=== PATIENT | female | born 2000 | race Caucasian/White ===

== ENCOUNTER 2024-11-14 13:23 | Emergency (ER) | payer BC, SELFPAY ==
[2024-11-14 13:25] VITALS: BP 128/73; PULSE 84; RESP 18; TEMP 36.6; O2SAT 100
[2024-11-14 13:34] VITALS: BP 133/69; PULSE 83; RESP 17; O2SAT 100
--- NOTE | 2024-11-14 14:11 | ED.GENADULT ---
HPI - General Adult General Chief complaint: Environmental Exposure Stated complaint: Carbon Monoxide Exposure Time Seen by Provider: 11/14/24 13:34 History of Present Illness HPI narrative: 24-year-old female presents to the emergency department for evaluation for carbon monoxide exposure. Patient states that her car a/c has been running poorly. patient began having nausea vomiting headache and some confusion earlier patient presented to the emergency department and was found to have a common oxide level of 13. States she is beginning to feel improved. Patient was placed on a non-rebreather shortly after arrival to the emergency department. Related Data Allergies Allergy/AdvReac Type Severity Reaction Status Date / Time No Known Allergies Allergy Verified 11/14/24 13:36 Review of Systems Review of Systems: All systems reviewed & are unremarkable except as noted in HPI and below Exam Narrative: APPEARANCE: Well appearing, no pain, no distress, well-nourished. HEAD: normocephalic, atraumatic. EYES: PERRLA/EOMI, conjunctivae clear. NOSE: Normal no drainage EARS:TMS clear with good light reflex. THROAT: Pharynx clear, no exudate. NECK: Supple. No adenopathy, no masses. RESPIRATORY: Airway patent, respirations nonlabored. Clear to auscultation bilaterally, no rales, rhonchi, wheezing. CARDIOVASCULAR: Regular rate and rhythm without murmurs rubs or gallops. ABDOMINAL: Soft, nontender, nondistended, normal bowel sounds MUSCULOSKELETAL: Moves all extremities. Strength/ROM intact, No edema, No calf tenderness. NEURO: Alert. Cranial nerves II through XII intact. Grossly intact SKIN: Warm, dry. Normal Color Course Vital Signs Vital signs: Vital Signs Temperature 97.8 F 11/14/24 13:25 Pulse Rate 84 11/14/24 13:25 Respiratory Rate 18 11/14/24 13:25 Blood Pressure 128/73 11/14/24 13:25 Pulse Oximetry 100 11/14/24 13:25 Oxygen Delivery Room Air 11/14/24 13:25 Temperature 97.8 F 11/14/24 13:25 Pulse Rate 71 11/14/24 15:59 Respiratory Rate 20 11/14/24 15:59 Blood Pressure 98/67 L 11/14/24 15:59 Pulse Oximetry 98 11/14/24 15:59 Oxygen Delivery Room Air 11/14/24 13:34 Medical Decision Making MDM Narrative Medical decision making narrative: 24-year-old female presents to the emergency department for evaluation for carbon monoxide exposure. Patient's initial carbon monoxide was approximately 13 on the portable monitor patient was kept on a non-rebreather 15 L for proximal 1 hour and symptoms did improve. ABG showed a carboxyhemoglobin of 0.3. Differential Diagnosis Differential Diagnosis: Carbon monoxide exposure, pneumonia Vital Signs Vital Signs: Vital Signs Temperature 97.8 F 11/14/24 13:25 Pulse Rate 84 11/14/24 13:25 Respiratory Rate 18 11/14/24 13:25 Blood Pressure 128/73 11/14/24 13:25 Pulse Oximetry 100 11/14/24 13:25 Oxygen Delivery Room Air 11/14/24 13:25 Temperature 97.8 F 11/14/24 13:25 Pulse Rate 71 11/14/24 15:59 Respiratory Rate 20 11/14/24 15:59 Blood Pressure 98/67 L 11/14/24 15:59 Pulse Oximetry 98 11/14/24 15:59 Oxygen Delivery Room Air 11/14/24 13:34 Lab Data Labs: Lab Results 11/14/24 Range/Units 15:13 Methemoglobin 0.9 (0-1.5) %THb ABG Data ABG results: 11/14/24 15:13 Puncture Site Right radial ABG pH 7.440 ABG pCO2 34.2 L ABG pO2 94.2 ABG PO2/FiO2 Ratio 4.49 ABG HCO3 22.7 ABG O2 Saturation 97.5 ABG O2 Content 16.3 ABG Base Excess -0.9 A-a Gradient 14.6 Oxyhemoglobin 96.2 Carboxyhemoglobin 0.3 Reduced Hemoglobin 2.6 Total Hemoglobin 12.0 O2 Delivery Device Room air O2 Liters/Min Not Reportable FiO2 21 Discharge Plan Discharge Clinical Impression: Carbon monoxide exposure Patient Disposition: Home Condition: Stable Instructions: Antibiotic Form, Carbon Monoxide Poisoning (ED) Additional Instructions: Have close follow-up with your primary care physician. Patient Language: Tanzanian Follow-up/Referrals: PHYSICIAN NOT ON STAFF,NONSTAFF [Primary Care Provider] -
--- OUTSIDE RECORDS SUMMARY | 2024-11-14 14:22 | XMS_ITS | Referral Summary ---
Author Organization [facility] [address] Address [address] [place] [address] Phone Care Team Providers Care Thread Clipper Name Role Phone Carlota Espino MD Primary Care Provider [phone] Allergies No known active allergies Medications iron bisgly,ps-FA-B-C# 12-succ 65 mg-65 mg -1,000 mcg (24) tablet Take by mouth senior analytic consultant before breakfast Active mv-min/iron/folic /calcium/vitK (WOMEN'S MULTIVITAMIN ORAL) Take by mouth senior analytic consultant before breakfast Active ciclopirox 1 % shampoo 2 Active drospirenone-ethi nyl estradioL (HOLLY,OCELLA) 3-0.03 mg per tablet Take 1 tablet by mouth daily 28 tablet 12 4 Active naproxen (NAPROSYN) 500 mg tablet Take 1 tablet (500 mg total) by mouth 2 (two) times a day with meals 30 tablet 5 Active HYDROcodone-aceta minophen (NORCO) 5-325 mg per tabletIndications :Pain Take 1 tablet by mouth every 6 (six) hours as needed for pain for up to 10 doses 10 tablet 5 Active Active Problems Problem Noted Date Diagnosed Date Abdominal pain 07/19/2021 Assessment & Plan (07/19/2021 9:59 AM INTERNAL MEDICINE SPECIALIST): Chronic and intermittent. Differential diagnosis: Dyspepsia versus gallbladder dysfunction verses food allergy Will obtain screening labs:LFTs, lipase, amylase Right upper quadrant ultrasound to look at gallbladder Continue to monitor symptoms, log any recurrences to help identify triggers Will follow up on labs/imaging and discuss additional plan as needed. Patient courage to follow-up with clinic or go to ER if symptoms recur Annual physical exam 07/19/2021 Assessment & Plan (12/18/2022 2:47 PM CDT): Doing well. BMI:20.12 Normal Routine labs ordered - Lipid Preventative Screening Due:GC/Chlamydia, Pap (scheduled with Fundraising Director) Dietary and exercise recommendations given today. Recommend exercise at least 30 minutes moderate to vigorous exercise and some strength training most days of the week. (minimum 150 minutes weekly) Discussed MyPlate recommendations and increasing fruits and vegetables Age appropriate counseling provided - Safe sex practices, Seat belt use, alcohol/drug avoidance Vaccines due - TDAP RTC annually for f/u Assessment & Plan (07/19/2021 10:00 AM INTERNAL MEDICINE SPECIALIST): Doing well. BMI 21 Routine labs ordered - CBC Preventative Screening Due: None. Denies any sexual activity in past so HIV, GC/Chlaymdia not performed. Dietary and exercise recommendations given today Vaccines due - none. Per patient flu vaccine given 03/2021 RTC annually for f/u Iron deficiency anemia 07/19/2021 Assessment & Plan (07/19/2021 9:44 AM INTERNAL MEDICINE SPECIALIST): Chronic and stable. Continue current medication. Will obtain lab and adjust meds prn Dysthymic disorder 07/19/2021 Assessment & Plan (07/19/2021 9:50 AM INTERNAL MEDICINE SPECIALIST): Chronic. PHQ-9 score 9 = mild depression IZA-7 score 2 No SI/HI Will continue to monitor. Patient advised to follow-up in clinic if symptoms worsen Dysfunction of both eustachian tubes 12/20/2019 Assessment & Plan (12/20/2019 4:33 PM CDT): Avoid ear cleaning techniques Avoid water to ears Flonase 2 sprays into each nostril while looking down over the sink, do not sniff in or blow nose after use for at least 30 minutes Sprain of calcaneofibular ligament of right ankl e 01/13/2018 Major depressive disorder, s bethany episode, mild with anxious distress 06/09/2017 GE reflux 02/27/2017 Immunizations Immunization Administration Dates Next Due DTaP 11/25/2006, 2,2001,06/09,2001 HPV, Quadrivalent 01/03/2013,09/13/2012,07/05/19 13 Hep A, Pediatric 09/16/2010 Hep B, Adolescent or Pediatric 2001,2000,2001 Hib (PRP-T) 05/09/2002, 2,2001,04/08 IPV 11/25/2006, 2,2001,04/08 Influenza, Quadrivalent, Spl it, Intramuscular 02/24/2018 Influenza, Quadrivalent, Spl it, Preservative Free, Intramuscular 02/22/2019,05/20/2017 Influenza, Trivalent, IM (MDV) 03/22/2015 Influenza, Trivalent, Preser vative Free, Intramuscular 02/15/2016 Influenza, Unspecified 02/16/2020 MMR 11/25/2006,02/10/2002 Meningococcal Conjugate (Menveo) 02/25/2019 Meningococcal MCV4P (Menactra) 07/05/2012,2010 Pneumococcal Conjugate 7-Valent 05/09/20 02,2001,2001,04/08 Tdap 07/05/2012 Varicella 11/25/2006,02/10/2002 Social History Tobacco Use Types Packs/Day Years Used Date Smoking Tobacco: Never Cigarettes Smokeless Tobacco: Never Alcohol Use Standard Drinks/Week Comments Not Currently 0 (1 standard drink = 0.6 oz pur e alcohol) AUDIT-C Answer Date Recorded Q1: How often do you have a drink containing alc ohol? Never 12/18/2022 Average Number of Drinks Not on file 023 Frequency of Binge Drinking Not on file 11/30 PHQ-2 Answer Date Recorded PHQ-2 Total Score (If total score is 3 or more points, staff should administer the PHQ-9) 0 12/18/2022 Personal Safety Answer Date Recorded Have you ever been in or are you currently in a harmful physical or emotional relationship or is someone making you feel afraid or unsafe? Denies 07/04/2024 Comments No Sex and Gender Information Value Date Recorded Sex Assigned at Not on file Legal Sex Female 1:47 AM INTERNAL MEDICINE SPECIALIST Gender Identity Not on file Sexual Orientation Not on file Last Filed Vital Signs Vital Sign Reading Time Taken Comments Blood Pressure 107/63 07/04/2024 6:58 PM INTERNAL MEDICINE SPECIALIST Pulse 88 07/04/2024 6:58 PM INTERNAL MEDICINE SPECIALIST Temperature 36.9 C (98.5 F) 07/04/2024 6:58 PM INTERNAL MEDICINE SPECIALIST Respiratory Rate 18 07/04/2024 6:58 PM INTERNAL MEDICINE SPECIALIST Oxygen Saturation 99% 07/04/2024 6:58 PM INTERNAL MEDICINE SPECIALIST Inhaled Oxygen Concentration - - Weight 52.2 kg (115 lb) 07/04/2024 6:58 PM INTERNAL MEDICINE SPECIALIST Height 157.5 cm (5' 2) 07/04/2024 6:58 PM INTERNAL MEDICINE SPECIALIST Body Mass Index 21.03 07/04/2024 6:58 PM INTERNAL MEDICINE SPECIALIST Plan of Treatment Not on file Procedures Procedure Name Priority Date/Time Associated Diagnosis Comments PAP WITH REFLEX TO HIGH RISK HPV Routine 12/30/2022 10:59 AM CDT Screening for malignant neoplasm of the cervix from Last 3 Months or Most Recently Relevant to Health Maintenance Results * Pap with reflex to High Risk HPV and Genotyping (Cytology Component) (12/30/2022 10:59 AM CDT) Thin prep (Pap test) 12/30/2022 10:59 AM CDT 12/30/2022 10:59 AM CDT Narrative PATHOLOGY CH - 01/05/2023 3:39 PM CDT [facility] Department of Pathology [address] [place], [place] [id number] Final Report Note to Patients: This report may contain a detailed description of human tissue sent by a health care provider to the laboratory for pathologic evaluation. The content of this report is essential for diagnosis and may provide important critical findings. This information may be unfamiliar to patients to review without a medical professional present. It is advised that the patient review this report in the presence of a health care provider who can answer questions and explain the details. Patient Name: NAHED ROBERTS Address: [address] [place] [address] Gender: F : 2000 (Age: 22) Service: Location: [facility] #: [id number] Patient Type: SPECIMEN Taken: 12/30/2022 Received: 12/30/2022 Accessioned:: 12/31/2022 Reported: 01/05/2023 Physician(s): Patti Hammer D.O. Diagnosis: SOURCE OF SPECIMEN Imaged Thinprep Pap Test w/ Reflex HPV - Fundraising Director Cytologic Material: STATEMENT OF ADEQUACY - Satisfactory for evaluation; endocervical/transformation zone component present GENERAL CATEGORIZATION: - Negative for intraepithelial lesion or malignancy INTERPRETATION: - Reactive/reparative cell changes CHARLOTTE Mejia(ASCP)Miesha Salvador M.D. Report Electronically Reviewed and Signed Out By Miesha Salvador M.D. 01/05/2023 15:39:50Specimen(s) Received: A: Imaged Thinprep Pap Test w/ Reflex HPV - Fundraising Director Cytologic Material Clinical History: Last Menstrual Period: 12/23/2022 The Pap test is a screening test used to aid in the detection of cervical cancer and its precursors. It should not be the sole means by which malignant and premalignant lesions are diagnosed. Both false negative and false positive results may occur. It also has poor sensitivity for the detection of endometrial lesions and should not be used to evaluate suspected endometrial abnormalities. For these reasons it is most important to obtain Pap tests at regular intervals. The performance characteristics of some immunohistochemical stains, fluorescence in-situ hybridization tests and immunophenotyping by flow cytometry cited in this report (if any) were determined by the Surgical Pathology Department at [facility] as part of an ongoing software quality manager program and in compliance with federally mandated regulations drawn from the Clinical Laboratory Improvement Act of 1988 (CLIA '88). Some of these tests rely on the use of analyte specific reagents and are subject to specific labeling requirements by the US Food and Drug Administration. Such diagnostic tests may only be performed in a facility that is certified by the Department of Health and Human Services as a high complexity laboratory under CLIA '88. The FDA has determined that such clearance or approval is not necessary. This test is used for clinical purposes. It should not be regarded as investigational or for research. Nevertheless, federal rules concerning the medical use of analyte specific reagents require that the following disclaimer be attached to the report: This test was developed and its performance characteristics determined by the Surgical Pathology Department [facility]. It has not been cleared or approved by the U. S. Food and Drug Administration. Tomeka Braden DO LAB CYTOLOGY ORDERABLES Final Result [facility] [id number] [place] [address] from Last 3 Months or Most Recently Relevant to Health Maintenance Insurance [employer] [place] [employer] [place] [facility] Care Teams Thread Clipper Relationship Specialty Start Date End Date Carlota Espino MD PCP - General Family Practice 07/08/21
--- OUTSIDE RECORDS SUMMARY | 2024-11-14 14:22 | XMS_ITS | Clinical Summary ---
Author Organization [facility] Address [address] [place] [address] Phone Care Team Providers Care Classroom Assistant Name Role Phone Rashaad Nelson MD Primary Care Provider Medications No known medications Active Problems Problem Noted Date Diagnosed Date Major depressive disorder, s bethany episode, mild with anxious distress 06/09/2017 Family History Relation Name Status Comments Brother Alive Father Alive Mother Alive Social History Tobacco Use Types Packs/Day Years Used Date Smoking Tobacco: Never Smokeless Tobacco: Never Alcohol Use Standard Drinks/Week Comments No 0 (1 standard drink = 0.6 oz pur e alcohol) Sexually Active Control Partners Comments Not Currently Comments Unknown Sex and Gender Information Value Date Recorded Sex Assigned at Not on file Legal Sex Female 3:40 PM COUGAR HUNTER Gender Identity Not on file Sexual Orientation Not on file Plan of Treatment Health Maintenance Due Date Last Done Comments Hepatitis C Virus (HCV) Screening 2001 TdaP Immunization 2001 Human Papillomavirus (HPV) Immunization (1 - 3-dose series) 02/06/2016 Meningococcal B Immunization (1 of 2 - Standard) 2017 Hepatitis B Immunization (1 of 3 - 19+ 3-dose series) 02/06/2020 SARS-COV-2 Immunization ( season) 2024 05/10/2021, 09/17/2020, 08/27/2020 Influenza Immunization (Season Ended) 2025 02/16/2020, 02/22/2019, 02/23/2018, Additional history exists Respiratory Syncytial Virus (RSV) Immunization (Adult) (1 - 1-dose 75+ series) 02/06/2076 Meningococcal Immunization (ACWY) Completed 02/25/2019 Pneumococcal Immunization Combined Aged Out No longer eligible based on patient's age to complete this topic Rotavirus Immunization Aged Out No lo nger eligible based on patient's age to complete this topic Insurance [facility] Care Teams Classroom Assistant Relationship Specialty Start Date End Date Rashaad Nelson MD [address] [place] [address] PCP - General Pediatrics 05/21/17
--- OUTSIDE RECORDS SUMMARY | 2024-11-14 14:22 | XMS_ITS | Encounter Summary ---
Author Organization [facility] Address [address] [place] [address] Phone Care Team Providers Care Technical Intern Name Role Phone Rashaad Nelson MD Primary Care Provider [phone] Carlota Espino MD Primary Care Provider [phone] Encounter Details Date Type Department Care Team (Late st Contact Info) Description 03/06/2017 Orders Only [facility] [address] [place] [address] Noy Griffith, LAURYN Social History Tobacco Use Types Packs/Day Years Used Date Smoking Tobacco: Never Assessed Comments Unknown Sex and Gender Information Value Date Recorded Sex Assigned at Not on file Legal Sex Female 1:47 AM JUNIOR WEB DEVELOPER Gender Identity Not on file Sexual Orientation Not on file documented as of this encounter Ordered Prescriptions Prescription Sig Dispense Quantity Refills Last Filled Start Date End Date raNITIdine (ZANTAC) 15 mg/mL syrup Take 10 mL (150 mg total) by mouth 2 (two) times a day. 300 mL 03/06/2017 04/05/2017 documented in this encounter Plan of Treatment Not on file documented as of this encounter Visit Diagnoses Not on filedocumented in this encounter Discontinued Medications Medication Sig Discontinue Reason Start Date End Da te raNITIdine (ZANTAC) 15 mg/mL syrup Take 10 mL (150 mg total) by mouth 2 (two) times a day. Reorder 02/27/2017 03/06/2017 documented as of this encounter Care Teams Technical Intern Relationship Specialty Start Date End Date Rashaad Nelson MD [address] [place] [address] PCP - General 07/05/12 07/07/21 Carlota Espino MD [address] [place] [address] PCP - General Family Practice 07/08/21 documented as of this encounter
--- OUTSIDE RECORDS SUMMARY | 2024-11-14 14:22 | XMS_ITS | Clinical Summary ---
Author Organization [facility] [address] Address [address] [place] [address] Phone Care Team Providers Care Automatic Grinder Operator Name Role Phone Carlota Espino MD Primary Care Provider [phone] Allergies No known active allergies Medications iron bisgly,ps-FA-B-C# 12-succ 65 mg-65 mg -1,000 mcg (24) tablet Take by mouth regional liaison before breakfast Active mv-min/iron/folic /calcium/vitK (WOMEN'S MULTIVITAMIN ORAL) Take by mouth regional liaison before breakfast Active ciclopirox 1 % shampoo [...] 07/19/2021 Assessment & Plan (07/19/2021 9:59 AM HORSE RIDER): Chronic and intermittent. Differential diagnosis: Dyspepsia versus [...] Lipid Preventative Screening Due:GC/Chlamydia, Pap (scheduled with Earth Boring Machine Operator) Dietary and exercise recommendations given today. Recommend [...] f/u Assessment & Plan (07/19/2021 10:00 AM HORSE RIDER): Doing well. BMI 21 Routine labs ordered - CBC Preventative Screening Due: None. Denies any sexual activity in past so HIV, GC/Chlaymdia not performed. Dietary and exercise recommendations given today Vaccines due - none. Per patient flu vaccine given 03/2021 RTC annually for f/u Iron deficiency anemia 07/19/2021 Assessment & Plan (07/19/2021 9:44 AM HORSE RIDER): Chronic and stable. Continue current medication. Will obtain lab and adjust meds prn Dysthymic disorder 07/19/2021 Assessment & Plan (07/19/2021 9:50 AM HORSE RIDER): Chronic. PHQ-9 score 9 = mild depression [...] 7-Valent 05/09/20 02,2001,2001,04/08 Tdap 07/05/2012 Varicella 11/25/2006,02/10/2002 Surgical History Surgery Date Site/Laterality Comments WISDOM TOOTH EXTRACTION 06/01/2019 - 05/31/2020 Medical History Medical History Date Comments Iron deficiency anemia 2018 Depression Peptic ulceration Family History Medical History Relation Name Comments Cancer Mother's Sister Lia Cancer Paternal Grandmother Pam Relation Name Status Comments Mother's Sister Lia Paternal Grandmother Pam Social History Tobacco Use Types Packs/Day Years [...] on file Legal Sex Female 1:47 AM HORSE RIDER Gender Identity Not on file Sexual Orientation Not on file Obstetrics History Para Term AB IAB SAB Ectopic Multiple Livin g Live Births 0 0 0 0 0 0 0 0 0 0 0 Last Filed Vital Signs Vital Sign Reading Time Taken Comments Blood Pressure 107/63 07/04/2024 6:58 PM HORSE RIDER Pulse 88 07/04/2024 6:58 PM HORSE RIDER Temperature 36.9 C (98.5 F) 07/04/2024 6:58 PM HORSE RIDER Respiratory Rate 18 07/04/2024 6:58 PM HORSE RIDER Oxygen Saturation 99% 07/04/2024 6:58 PM HORSE RIDER Inhaled Oxygen Concentration - - Weight 52.2 kg (115 lb) 07/04/2024 6:58 PM HORSE RIDER Height 157.5 cm (5' 2) 07/04/2024 6:58 PM HORSE RIDER Body Mass Index 21.03 07/04/2024 6:58 PM HORSE RIDER Plan of Treatment Health Maintenance Due Date Last Done Comments Chlamydia and Gonorrhea (GC/ CT) Screening 2001 Hepatitis C Screening 2001 Meningococcal B Vaccine (1 o f 2 - Standard) 2017 DTaP/Tdap/Td Vaccine (7 - Td or Tdap) 07/05/2022 07/05/2012, 11/25/2006, 05/09/2002, Additional history exists Depression Screening 12/19/2023 12/18/2022, 07/19/2021, 07/19/2021 Cervical Cancer Screening 12/31/2023 12/30/2022 Regular Well Visit/Exam 18-64 01/10/2025, 12/30/2022, 12/18/2022, Additional history exists Influenza Vaccine (Season Ended) 2025 02/16/2020, 02/22/2019, 02/24/2018, Additional history exists Hepatitis B Screening Completed 2001 , 2001, 2001 Pneumococcal vaccine <65 Completed 002, 2001, 2001, Additional history exists Varicella Vaccines Completed 11/25/2006, 02/10/2002 HPV Vaccines Completed 01/03/2013, 08/30, 07/05/2012 Procedures Procedure Name Priority Date/Time Associated Diagnosis [...] PATHOLOGY CH - 01/05/2023 3:[address] [facility] Department of Pathology [address] [place] [address] Final Report Note to Patients: This report [...] the details. Patient Name: NAHED ROBERTS Address: [address] [place] [address] Gender: F : 2000 (Age: 22) Service: Location: [facility] #: [id number] Patient Type: SPECIMEN Taken: 12/30/2022 Received: 12/30/2022 Accessioned:: 12/31/2022 Reported: 01/05/2023 Physician(s): Patti Hammer D.O. Diagnosis: SOURCE OF SPECIMEN Imaged Thinprep Pap Test w/ Reflex HPV - Earth Boring Machine Operator Cytologic Material: STATEMENT OF ADEQUACY - Satisfactory for evaluation; endocervical/transformation zone component present GENERAL CATEGORIZATION: - Negative for intraepithelial lesion or malignancy INTERPRETATION: - Reactive/reparative cell changes CHARLOTTE Mejia(ASCP)Miesha Salvador M.D. Report Electronically Reviewed and Signed Out By Miesha Salvador M.D. 01/05/2023 15:39:50Specimen(s) Received: A: Imaged Thinprep Pap Test w/ Reflex HPV - Earth Boring Machine Operator Cytologic Material Clinical History: Last Menstrual Period: [...] determined by the Surgical Pathology Department at [facility] as part of an ongoing quality control chemist program and in compliance with federally mandated [...] characteristics determined by the Surgical Pathology Department [facility]. It has not been cleared or approved by the U. S. Food and Drug Administration. Tomeka Braden DO LAB [place]OLOGY [place] [address] [place] [address] from Last 3 Months or Most Recently Relevant to Health Maintenance Insurance [employer] [place] [employer] [place] [facility] Care Teams Automatic Grinder Operator Relationship Specialty Start Date End Date Carlota Espino MD PCP - General Family Practice 07/08/21
[2024-11-14] MEDS: ONDANSETRON HCL ODT 4 MG TABLET PO ×2 (14:31→14:40)
--- OUTSIDE RECORDS SUMMARY | 2024-11-14 15:08 | XMS_ITS | Encounter Summary ---
Author Organization [facility] Address [address] [place] [address] Phone Care Team Providers Care Snout Puller Name Role Phone Rashaad Nelson MD Primary Care Provider [phone] Carlota Espino MD Primary Care Provider [phone] Encounter Details Date Type Department Care Team (Late st Contact Info) Description 03/06/2017 Orders Only [facility] [address] [place] [address] Noy Griffith, LAURYN Social History Tobacco Use Types Packs/Day Years Used Date Smoking Tobacco: Never Assessed Comments Unknown Sex and Gender Information Value Date Recorded Sex Assigned at Not on file Legal Sex Female 1:47 AM IRRIGATION INSTALLATION SPECIALIST Gender Identity Not on file Sexual [...] documented as of this encounter Care Teams Snout Puller Relationship Specialty Start Date End Date Rashaad Nelson MD [address] [place] [address] PCP - General 07/05/12 07/07/21 Carlota Espino MD [address] [place] [address] PCP - General Family Practice 07/08/21 documented as of this encounter
--- OUTSIDE RECORDS SUMMARY | 2024-11-14 15:08 | XMS_ITS | Referral Summary ---
Author Organization [facility] [address] Address [address] [place] [address] Phone Care Team Providers Care Grease Packer Name Role Phone Carlota Espino MD Primary Care Provider [phone] Allergies No known active allergies Medications iron bisgly,ps-FA-B-C# 12-succ 65 mg-65 mg -1,000 mcg (24) tablet Take by mouth contractor general building before breakfast Active mv-min/iron/folic /calcium/vitK (WOMEN'S MULTIVITAMIN ORAL) Take by mouth contractor general building before breakfast Active ciclopirox 1 % shampoo [...] 07/19/2021 Assessment & Plan (07/19/2021 9:59 AM ASSESSMENT DIRECTOR): Chronic and intermittent. Differential diagnosis: Dyspepsia versus [...] Lipid Preventative Screening Due:GC/Chlamydia, Pap (scheduled with Image Scientist) Dietary and exercise recommendations given today. Recommend [...] f/u Assessment & Plan (07/19/2021 10:00 AM ASSESSMENT DIRECTOR): Doing well. BMI 21 Routine labs ordered - CBC Preventative Screening Due: None. Denies any sexual activity in past so HIV, GC/Chlaymdia not performed. Dietary and exercise recommendations given today Vaccines due - none. Per patient flu vaccine given 03/2021 RTC annually for f/u Iron deficiency anemia 07/19/2021 Assessment & Plan (07/19/2021 9:44 AM ASSESSMENT DIRECTOR): Chronic and stable. Continue current medication. Will obtain lab and adjust meds prn Dysthymic disorder 07/19/2021 Assessment & Plan (07/19/2021 9:50 AM ASSESSMENT DIRECTOR): Chronic. PHQ-9 score 9 = mild depression [...] on file Legal Sex Female 1:47 AM ASSESSMENT DIRECTOR Gender Identity Not on file Sexual Orientation Not on file Last Filed Vital Signs Vital Sign Reading Time Taken Comments Blood Pressure 107/63 07/04/2024 6:58 PM ASSESSMENT DIRECTOR Pulse 88 07/04/2024 6:58 PM ASSESSMENT DIRECTOR Temperature 36.9 C (98.5 F) 07/04/2024 6:58 PM ASSESSMENT DIRECTOR Respiratory Rate 18 07/04/2024 6:58 PM ASSESSMENT DIRECTOR Oxygen Saturation 99% 07/04/2024 6:58 PM ASSESSMENT DIRECTOR Inhaled Oxygen Concentration - - Weight 52.2 kg (115 lb) 07/04/2024 6:58 PM ASSESSMENT DIRECTOR Height 157.5 cm (5' 2) 07/04/2024 6:58 PM ASSESSMENT DIRECTOR Body Mass Index 21.03 07/04/2024 6:58 PM ASSESSMENT DIRECTOR Plan of Treatment Not on file Procedures [...] CH - 01/05/2023 3:[address] [facility] Department of Pathology [address] [place], [place] [id number] Final Report Note to Patients: This report [...] the details. Patient Name: NAHED ROBERTS Address: [address] [place] [address] Gender: F : 2000 (Age: 22) Service: Location: [facility] #: [id number] Patient Type: SPECIMEN Taken: 12/30/2022 Received: 12/30/2022 Accessioned:: 12/31/2022 Reported: 01/05/2023 Physician(s): Patti Hammer D.O. Diagnosis: SOURCE OF SPECIMEN Imaged Thinprep Pap Test w/ Reflex HPV - Image Scientist Cytologic Material: STATEMENT OF ADEQUACY - Satisfactory for evaluation; endocervical/transformation zone component present GENERAL CATEGORIZATION: - Negative for intraepithelial lesion or malignancy INTERPRETATION: - Reactive/reparative cell changes CHARLOTTE Mejia(ASCP)Miesha Salvador M.D. Report Electronically Reviewed and Signed Out By Miesha Salvador M.D. 01/05/2023 15:39:50Specimen(s) Received: A: Imaged Thinprep Pap Test w/ Reflex HPV - Image Scientist Cytologic Material Clinical History: Last Menstrual Period: [...] by the Surgical Pathology Department at [facility] as part of an ongoing quality assurance monitor final program and in compliance with federally mandated [...] characteristics determined by the Surgical Pathology Department [facility]. It has not been cleared or approved by the [place]. S. Food and Drug Administration. Tomeka Braden DO LAB CYTOLOGY ORDERABLES Final Result [facility] [address] [place] [address] from Last 3 Months or Most Recently Relevant to Health Maintenance Insurance [employer] [place] [employer] [facility] Care Teams Grease Packer Relationship Specialty Start Date End Date Carlota Espino MD PCP - General Family Practice 07/08/21
--- OUTSIDE RECORDS SUMMARY | 2024-11-14 15:08 | XMS_ITS | Clinical Summary ---
Author Organization CC [facility] [address] Address [address] [place] [address] Phone Care Team Providers Care Dock Manager Name Role Phone Carlota Espino MD Primary Care Provider [phone] Allergies No known active allergies Medications iron bisgly,ps-FA-B-C# 12-succ 65 mg-65 mg -1,000 mcg (24) tablet Take by mouth mill control operator before breakfast Active mv-min/iron/folic /calcium/vitK (WOMEN'S MULTIVITAMIN ORAL) Take by mouth mill control operator before breakfast Active ciclopirox 1 % shampoo [...] 07/19/2021 Assessment & Plan (07/19/2021 9:59 AM RIG SUPERINTENDENT): Chronic and intermittent. Differential diagnosis: Dyspepsia versus [...] Lipid Preventative Screening Due:GC/Chlamydia, Pap (scheduled with Clay Shop Supervisor) Dietary and exercise recommendations given today. Recommend [...] f/u Assessment & Plan (07/19/2021 10:00 AM RIG SUPERINTENDENT): Doing well. BMI 21 Routine labs ordered - CBC Preventative Screening Due: None. Denies any sexual activity in past so HIV, GC/Chlaymdia not performed. Dietary and exercise recommendations given today Vaccines due - none. Per patient flu vaccine given 03/2021 RTC annually for f/u Iron deficiency anemia 07/19/2021 Assessment & Plan (07/19/2021 9:44 AM RIG SUPERINTENDENT): Chronic and stable. Continue current medication. Will obtain lab and adjust meds prn Dysthymic disorder 07/19/2021 Assessment & Plan (07/19/2021 9:50 AM RIG SUPERINTENDENT): Chronic. PHQ-9 score 9 = mild depression [...] on file Legal Sex Female 1:47 AM RIG SUPERINTENDENT Gender Identity Not on file Sexual Orientation Not on file Obstetrics History Para Term AB IAB SAB Ectopic Multiple Livin g Live Births 0 0 0 0 0 0 0 0 0 0 0 Last Filed Vital Signs Vital Sign Reading Time Taken Comments Blood Pressure 107/63 07/04/2024 6:58 PM RIG SUPERINTENDENT Pulse 88 07/04/2024 6:58 PM RIG SUPERINTENDENT Temperature 36.9 C (98.5 F) 07/04/2024 6:58 PM RIG SUPERINTENDENT Respiratory Rate 18 07/04/2024 6:58 PM RIG SUPERINTENDENT Oxygen Saturation 99% 07/04/2024 6:58 PM RIG SUPERINTENDENT Inhaled Oxygen Concentration - - Weight 52.2 kg (115 lb) 07/04/2024 6:58 PM RIG SUPERINTENDENT Height 157.5 cm (5' 2) 07/04/2024 6:58 PM RIG SUPERINTENDENT Body Mass Index 21.03 07/04/2024 6:58 PM RIG SUPERINTENDENT Plan of Treatment Health Maintenance Due Date [...] PATHOLOGY CH - 01/05/2023 3:39 PM CDT [facility] Department of Pathology [address] [place] [address] Final Report Note to Patients: This report [...] the details. Patient Name: NAHED ROBERTS Address: [address] [place] [address] Gender: F : 2000 (Age: 22) Service: Location: [facility] #: [id number] Patient Type: SPECIMEN Taken: 12/30/2022 Received: 12/30/2022 Accessioned:: 12/31/2022 Reported: 01/05/2023 Physician(s): Patti Hammer D.O. Diagnosis: SOURCE OF SPECIMEN Imaged Thinprep Pap Test w/ Reflex HPV - Clay Shop Supervisor Cytologic Material: STATEMENT OF ADEQUACY - Satisfactory for evaluation; endocervical/transformation zone component present GENERAL CATEGORIZATION: - Negative for intraepithelial lesion or malignancy INTERPRETATION: - Reactive/reparative cell changes CHARLOTTE Mejia(ASCP)Miesha Salvador M.D. Report Electronically Reviewed and Signed Out By Miesha Salvador M.D. 01/05/2023 15:39:50Specimen(s) Received: A: Imaged Thinprep Pap Test w/ Reflex HPV - Clay Shop Supervisor Cytologic Material Clinical History: Last Menstrual Period: [...] determined by the Surgical Pathology Department at [facility] as part of an ongoing quality rep program and in compliance with federally mandated [...] characteristics determined by the Surgical Pathology Department [facility]. It has not been cleared or approved by the U. S. Food and Drug Administration. Tomeka Braden DO LAB [place]OLOGY [place] [address] [place] [address] from Last 3 Months or Most Recently Relevant to Health Maintenance Insurance [employer] [place] [employer] [facility], [facility]–1983 Care Teams Dock Manager Relationship Specialty Start Date End Date Carlota Espino MD PCP - General Family Practice 07/08/21
--- OUTSIDE RECORDS SUMMARY | 2024-11-14 15:08 | XMS_ITS | Clinical Summary ---
Author Organization [facility] Address [address] [place] [address] Phone Care Team Providers Care Flooring Salesperson Name Role Phone Rashaad Nelson MD Primary [...] on file Legal Sex Female 3:40 PM GEOSCIENCES ASSOCIATE PROFESSOR Gender Identity Not on file Sexual Orientation [...] patient's age to complete this topic Insurance [facility] Care Teams Flooring Salesperson Relationship Specialty Start Date End Date Rashaad Nelson MD [address] [place] [address] PCP - General Pediatrics 05/21/17
[2024-11-14 15:10] VITALS: RESP 20; O2SAT 100
[2024-11-14 15:19] LABS: Alveolar/Arterial O2 Gradient 14.6 mmHg; Base Excess ABG -0.9 mEq/l (+/-2.0); Carboxyhemoglobin 0.3 % THb (0-2.0); Fractional Inspired Oxygen 21 %; HCO3 ABG 22.7 mEq/l (22.0-26.0); Methemoglobin ABG 0.9 %THb (0-1.5); Oxygen Content ABG 16.3 %vol (16.0-22.0); Oxygen Saturation ABG 97.5 % (95.0-100.0); Oxyhemoglobin 96.2 % THb (90.0-100.0); PCO2 ABG 34.2 mmHg (35.0-45.0); PO2 ABG 94.2 mmHg (80.0-100.0); PO2 FiO2 Ratio Arterial Blood 4.49 %; Reduced Hemoglobin 2.6 %THb (0-5.0)
[2024-11-14 15:36] LABS: Device ROOM AIR; Modified Allen's Test Pass; Site Drawn RIGHT RADIAL
[2024-11-14 15:59] VITALS: BP 98/67; PULSE 71; RESP 20; O2SAT 98
== END 2024-11-14 16:01 | disposition home or self-care (01) ==
PROVIDERS: Emergency Provider Emergency Medicine
DX: T58.01XA Toxic effect of carbon monoxide from motor vehicle exhaust, accidental (unintentional), initial encounter (principal)
CPT/HCPCS: 36600; 82375; 82805; 83050; 85018; 99283; A9270